=== PATIENT | female | born 1950 | race Caucasian/White ===

== ENCOUNTER 2018-02-23 23:05 | Inpatient (IN) | payer OTHER, MEDICARE ==
[~2018-02-23] VITALS: Ht 172.7 cm; Wt 96.2 kg
[~2018-02-23 23:05] MED LIST: AMARYL2 MG PO; ASPIR 8181 MG PO; ASPIRIN325 PO; CLONIDINE0.1 PO; CRESTOR5 MG PO; FISH OIL 1,0001 EAC5 PO; GLUCOPHAGE1000 MG PO; GLUCOVANCE 5-51 EACH PO; LISINOPRIL-HCT1 EACH PO; LISINOPRIL20 MG PO; LOPRESSOR; METFORMIN HCL500 MG PO; MULTIPLE VITAM1 EAC3 PO; PLAVIX 75 MG TA75 MG PO; TOPROL XL25 MG PO; TOUJEO SOL300 UNIT/1 SQ; VICTOZA0.6 MG/0.1 SQ; WELCHOL 625 MG625 MG PO
[2018-02-23 23:08] VITALS: BP 177/89
[2018-02-23] MEDS ORDERED: JANUMET XR 50-1 EAC1 PO (23:12)
[2018-02-23] MEDS ORDERED: ZOCOR20 MG PO (23:12)
[2018-02-23 23:41] LABS: ABSOLUTE EOSINOPHILS 0.1 thou/uL (0.0-0.7); ABSOLUTE LYMPHOCYTES 2.2 thou/uL (0.8-5.3); ABSOLUTE MONOCYTES 0.4 thou/uL (0.0-1.2); BASOPHILS 0.8 %; EOSINOPHILS 2.1 %; HEMATOCRIT 41.1 % (37.0-47.0); HEMOGLOBIN 14.1 gm/dL (12.0-15.0); LYMPHOCYTES 38.4 %; MCH 28.4 pg (26.0-34.0); MCHC 34.4 g/dL (28.0-37.0); MCV 82.7 fL (80.0-100.0); MONOCYTES 6.4 %; MPV 7.5 fl. (7.2-11.1); NUCLEATED RBCS 0 /100WBC; PLATELET COUNT* 211 thou/uL (150-400); POLYS 52.3 %; RBC 4.97 mil/uL (4.20-5.00); RDW-CV 13.3 % (10.5-14.5); WBC 5.8 thou/uL (4.0-11.0)
[2018-02-23 23:48] LABS: ANION GAP 8 mmol/L (7-16); BUN 39 mg/dL (7-18); CALCIUM 8.9 mg/dL (8.5-10.1); CHLORIDE 104 mmol/L (98-107); CO2 27 mmol/L (21-32); CREATININE 1.4 mg/dL (0.6-1.3); GLUCOSE 198 mg/dL (70-99); POTASSIUM 3.7 mmol/L (3.5-5.1); SODIUM 139 mmol/L (136-145)
[2018-02-23 23:53] LABS: APTT 24.7 Seconds (25.0-31.3); PROTIME 10.1 Seconds (9.20-11.50)
[2018-02-23 23:55] LABS: ALBUMIN 3.5 g/dL (3.4-5.0); ALKALINE PHOSPHATASE 100 U/L (46-116); LIPASE 419 U/L (73-393); SGOT 20 U/L (15-37); SGPT 29 U/L (30-65); TOTAL BILIRUBIN 0.3 mg/dL (<0.1-1.0); TOTAL PROTEIN 6.8 g/dL (6.4-8.2); TROPONIN-I LEVEL <0.06 ng/mL (<0.06)
[2018-02-24] VITALS (13 sets, daily range): BP systolic 100–138; BP diastolic 60–89
[2018-02-24] MEDS ORDERED: PROBIOTIC1 EAC2 PO (02:43)
[2018-02-24] MEDS ORDERED: FENOFIBRATE40 MG PO (02:43)
[2018-02-24] MEDS ORDERED: MELATONIN3 MG PO (02:44)
[2018-02-24] MEDS ORDERED: SENOKOT-S1 TA2 PO (02:44)
[2018-02-24] MEDS ORDERED: VITAMIN D400 UNIT PO (02:45)
[2018-02-24] MEDS ORDERED: VITAMIN B122500 MCG PO (02:46)
[2018-02-24 10:37] LABS: ANION GAP 7 mmol/L (7-16); BUN 35 mg/dL (7-18); CALCIUM 8.5 mg/dL (8.5-10.1); CHLORIDE 107 mmol/L (98-107); CHOLESTEROL 119 mg/dL (<200); CO2 28 mmol/L (21-32); CREATININE 1.3 mg/dL (0.6-1.3); GLUCOSE 151 mg/dL (70-99); HDL CHOLESTEROL 40 mg/dL (>40); LDL CHOLESTEROL 59 mg/dL (<100); SODIUM 142 mmol/L (136-145); TRIGLYCERIDE 102 mg/dL (<150); VLDL 20 mg/dL (<40)
[2018-02-24 10:41] LABS: SERUM ASSESSMENT Clear
--- NOTE | 2018-02-24 14:03 | EKG ---
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
--- NOTE | 2018-02-24 14:05 | EKG ---
[place] [address] ELECTROCARDIOGRAM REPORT Name: RAQUEL CASTELLANOS Room: [address] ADM IN [facility]#: [id number] Admission: 02/24/18 Attend Phys: Toby Dotson MD Discharge: Date of : 48 Report #: [id number] THIS REPORT FOR: //name// [facility] Test Date: 2018-02-24 Test Time: 08:33:24 Pat Name: RAQUEL CASTELLANOS Department: Room: [place] [address] Gender: F Physician Neonatology: : 1950 Requested By: Diana Choi Order Number: [id number] Reading MD: Yasmany Ramires Measurements Intervals [place] Rate: 64 P: 14 PA: 197 QRS: -13 QRSD: 98 T: -26 QT: 410 QTc: 423 Interpretive Statements Sinus rhythm Abnrm T, consider ischemia, anterolateral lds Compared to ECG 02/10/2017 23:08:45 Possible ischemia now present Electronically Signed On 02-24-2018 14:04:47 CDT by Yasmany Ramires [email or web address] <ELECTRONICALLY SIGNED> By: Yasmany Ramires MD, [facility] 02/24/18 1404 0833 0833 Yasmany Ramires MD, [facility] /EPI
--- NOTE | 2018-02-24 15:16 | CON ---
[address] [address] CONSULTATION Name: RAQUEL CASTELLANOS Room: [address] IN [facility]#: [id number] Admission: 02/24/18 Attend Phys: Toby Dotson MD Discharge: Date of : 48 Report #: [id number] THIS REPORT FOR: //name// CC: Toby Flanagan DO INDICATION: Chest pain. HISTORY OF PRESENT ILLNESS: The patient is a very pleasant 67-year-old white female with history of coronary artery disease with percutaneous coronary intervention on several occasions in 2005. She presents to the hospital with complaints of upper abdominal and chest discomfort and bilateral arm pain. This occurred last night. She states the pain was worse with activity and resolved or improved with rest. Initial EKG in the emergency room shows sinus rhythm with inverted T waves in the anterior leads. Her cardiac enzymes have been unremarkable. At the time of my interview, she was pain free. She does also have a mildly elevated lipase suggesting some possible low grade pancreatitis. She had a cholecystectomy many years ago. CARDIAC RISK FACTORS: Include hypertension, dyslipidemia, and type 2 diabetes mellitus. PAST MEDICAL HISTORY: 1. Coronary artery disease. 2. Insulin-requiring diabetes. 3. Hyperlipidemia. 4. Hypertension. PAST SURGICAL HISTORY: Cholecystectomy in 2010 and bone spur removal. FAMILY HISTORY: The patient's mother has with cardiac disease. The patient's father suddenly. SOCIAL HISTORY: The patient is . 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 She does not smoke. She does not drink alcohol. ALLERGIES AND INTOLERANCES: AVELOX, which cause stomach pain. HOME MEDICATIONS: Vitamin D 400 units daily, B12 250 mcg daily, fenofibrate 40 mg at bedtime, glimepiride 2 mg twice daily, insulin long-acting 42 units at bedtime, probiotics one capsule at bedtime, lisinopril/hydrochlorothiazide 10/12.5 daily, melatonin 3 tablets at bedtime p.r.n., Toprol-XL 25 mg daily, fish oil 2000 mg daily, Senokot-S 1 tablet at bedtime, simvastatin 20 mg at bedtime, Janumet 01/1000 one tablet b.i.d. REVIEW OF SYSTEMS: A 14-point review of systems positive [place] [address] CONSULTATION Name: RAQUEL CASTELLANOS Denise Room: [address]#: [id number] Admission: 02/24/18 Attend Phys: Toby Dotson MD Discharge: Date of : 48 Report #: [id number] as outlined above. She has diabetes. She reports allergies and intolerances to AVELOX. She wears glasses, but has no acute visual loss. She has decreased hearing. Otherwise, 14-point review of systems is unremarkable. PHYSICAL EXAMINATION: VITAL SIGNS: Stable. Blood pressure 138/60, pulse 63 and regular. GENERAL: This is a pleasant female, in no distress. Mood and affect appropriate. HEENT: The patient is wearing glasses. Extraocular muscles intact. Mucous membranes are moist. NECK: Shows no jugular venous distention. There are no carotid bruits. CHEST: Reveals clear lung oliva without wheezes or rales. CARDIAC: Reveals a regular rhythm with normal S1 and S2. I do not appreciate gallop or murmur. ABDOMEN: Reveals normal bowel sounds. The abdomen is soft and nontender. EXTREMITIES: Shows no edema. Peripheral pulses 2+ and easily palpable. SKIN: Warm and dry. A 12-lead EKG shows sinus rhythm with inverted T waves in the anterior leads. LABORATORY DATA: Labs are reviewed. Electrolytes within normal limits. BUN 39, creatinine 1.4, serum glucose 198, lipase is 419. Troponins less than 0.06 on 3 separate occasions. Lipid profile is pending. White blood cell count 5.8, hemoglobin 14.1, and platelet count 211,000. IMPRESSION AND RECOMMENDATIONS: 1. Unstable angina. At this point in time, we will proceed with coronary angiography. Further intervention will be pending the results of that study. 2. Coronary artery disease as outlined above. The patient should be on a daily aspirin in addition to her home medications listed above. 3. Hypertension, adequately controlled on current cardiac regimen. 4. Hyperlipidemia. She is on fenofibrate and simvastatin. Fasting lipid profile has been obtained and is pending. 5. Diabetes per primary physician. <ELECTRONICALLY SIGNED> By: Yasmany Ramires MD, [facility] 02/24/18 1516 0929 1028Microsette Ramires MD, FACC /nt
--- NOTE | 2018-02-24 18:04 | CARD ---
[address] [address] CARDIAC CATH REPORT Name: RAQUEL CASTELLANOS Room: [address] IN [facility]#: [id number] Admission: 02/24/18 Attend Phys: Toby Dotson MD Discharge: Date of : 48 Report #: [id number] THIS REPORT FOR: //name// APPROVED REPORT Study performed: 02/24/2018 10:23:16 Patient Details Patient Status: In-Patient Room #: 233 The patient is a 67 year-old female Event Personnel Yasmany Ramires Pantry Goods Worker, Heavenly Cabrera RN Lab Pack Chemist, Unique Chanel RTR Scrub, Sedrick Murillo (R) Monitor, Sedrick Murillo (R) Scrub, Nan Leyva Monitor, Carlos Manuel Bermudez Process Coordinator, Naomi Mays RN Lab Pack Chemist Procedures Performed Art Access - R radial artery , Selective Left Coronary Angiography, Left Heart Catheterization, PTCA with Stenting Indication Non-STEMI , Chest pain Risk Factors Arterial Hypertension, Hypercholesterolemia, Coronary Artery Disease Previous Procedures/Diagnoses Previous PCI Admission/Lab Medications/Medications given during procedure Heparin Unfract. Procedure Narrative The patient was brought electively to the Cardiac Catheterization Laboratory and was prepped and draped in a sterile manner. The right wrist was infiltrated with 2% Lidocaine subcutaneous anesthesia. A Slender Glidesheath sheath was inserted into the right radial artery. Coronary angiography was performed using coronary diagnostic catheters. The right coronary system was accessed and visualized with a DCR: [place] 4.0 5fr catheter. The left coronary system was accessed and visualized with a JL4 5fr catheter. Left ventricular/Aortic Valve gradient assessed via catheter pullback. [place] [address] CARDIAC CATH REPORT Name: RAQUEL CASTELLANOS Room: [address]#: [id number] Admission: 02/24/18 Attend Phys: Toby Dotson MD Discharge: Date of : 48 Report #: [id number] with a 6 Fr Vasc-Band Reg 24cm. There was no hematoma. Patient developed chest pain during PTCA. Patent developed hypotension during PTCA requiring IV fluid and IV dopamine. Intraoperative Conscious Sedation Sedation start time: 11:28 Case end Time: 13:06 Fentanyl 75 mcg Versed 2 mg Fluoro Time: 19.1 minutes Dose: DAP 435721 cGycm2 3348.97 mGy Contrast Type and Amount: Visipaque 500 ml Coronary Angiography The patient's coronary anatomy is co- dominant. Diagnostic Cath Left Main 30% ostial LAD 80% proximal and 70% mid LAD stenosis Diagonal 1 Normal Circumflex Mildly plaqued in the proximal and midportion. Widely patent stent in the midportion. OM1 Normal OM2 Normal OM3 Normal Right Coronary Stents from proximal to distal right coronary artery. Totally occluded after acute marginal. R PDA Filled by left to right collaterals. RPLV Filled by [id number]-gjtjw collaterals. Left Ventriculography Left Ventriculography was not performed. Hemodynamics The aortic pressure is 143/70 mmHg with a mean of mmHg. The left ventricular end diastolic pressure is 11 mmHg. There was no gradient across the aortic valve upon pullback. Pullback from the left ventricle to the aorta revealed no gradient across the aortic valve. PCI Technique Lesion Anticoagulation was achieved with Heparin. Patient was preloaded with Brillinta. Percutaneous coronary intervention was performed on the proximal left anterior descending artery segment. The lesion stenosis prior to intervention was 90%% with AUBRIE 3 flow. A [id number] [place] [address] CARDIAC CATH REPORT Name: RAQUEL CASTELLANOS Denise Room: [address]#: [id number] Admission: 02/24/18 Attend Phys: Toby Dotson MD Discharge: Date of : 48 Report #: [id number] Catheter was used to engage the lm ostium. A [facility] Interventional Guidewire was used to cross the lesion. BALLOON DILATION A Balloon catheter 2.5 x 8 mm was inserted and inflated up to 14atm for 15seconds. Repeat angiography revealed the following post-dilatation results: 50% stenosis. STENT DEPLOYMENT A drug-eluting stent 3.0 X 15 mm was inserted and inflated up to 10atm for 10seconds. Repeat angiography revealed the following post-stent deployment results: 0% stenosis. Plaque shift was noted into ostium of circumflex artery. Final angiography reveals 0 % stenosis with AUBRIE 3 flow. Conclusion 1. 90% ostial stenosis of lad 2. no restenosis noted of stents in the circumflex artery 3. chronic occlusion of the rca stents that distally filled by collaterals 4. successful placement of a drug eluting stent in the ostium of the lad, although there was plaqus shift into ostium of circumflex artery Recommendations Cardiac Rehabilitation Referral Aggressive Medical Therapy Medications Administered Ticagrelor Diagnostic Cath Approved by: Yasmany Ramires MD Date/Time: <ELECTRONICALLY SIGNED> By: Carlos Manuel Bermudez MD, [facility] 02/24/181803 03 180stanislav Bermudez MD, FACC /INF
[2018-02-25] VITALS (11 sets, daily range): BP systolic 105–158; BP diastolic 47–88
[2018-02-25 02:10] LABS: GLYCOHEMOGLOBIN (HGB A1C) 8.2 % (4.8-5.6)
[2018-02-25 04:49] LABS: CALCIUM 9.1 mg/dL (8.5-10.1); CREATININE 1.6 mg/dL (0.6-1.3); POTASSIUM 4.1 mmol/L (3.5-5.1)
[2018-02-25] MEDS ORDERED: BRILINTA90 MG PO (10:47)
--- NOTE | 2018-02-25 12:14 | EKG ---
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: : 1950 Requested By: Carlos Manuel Bermudez Order Number: [id number] Reading MD: Carlos Manuel Bermudez Measurements Intervals [place] Rate: 65 P: 39 IA: 165 QRS: -16 QRSD: 100 T: -38 QT: 413 QTc: 430 Interpretive Statements Sinus rhythm Borderline left axis deviation Abnormal T, consider ischemia, diffuse leads Compared to ECG 02/24/2018 08:33:24 T-wave abnormality now present Possible ischemia still present Electronically Signed On 02-25-2018 12:14:30 CDT by Carlos Manuel Bermudez [email or web address] <ELECTRONICALLY SIGNED> By: Carlos Manuel Bermudez MD, FACC 02/25/18 1214 0803 0803 Carlos Manuel Bermudez MD, [facility] /EPI
--- NOTE | 2018-02-25 15:45 | 2DMMODE ---
[place] [address] 2 D/M-MODE ECHOCARDIOGRAM Name: RAQUEL CASTELLANOS Room: [address] IN [facility]#: [id number] Admission: 02/24/18 Attend Phys: Toby oDtson, Discharge: Date of : 48 Date of Service: 02/25/18 1544 Report #: [id number] THIS REPORT FOR: //name// APPROVED REPORT Study performed: 02/25/2018 13:06:17 EXAM: Comprehensive 2D, Doppler, and color-flow Echocardiogram Patient Location: Bedside BSA: 2.07 HR: 89 bpm BP: 111/51 mmHg Other Information Study Quality: Fair Indications Dyspnea Chest Pain 2D Dimensions LVEF(%): 60.25 (>50%) IVSd: 12.99 (7-11mm) LVOT Diam: 21.61 (18-24mm) LVDd: 47.51 mm PWd: 11.19 (7-11mm) Ascending Ao: 33.66 (22-36mm) LVDs: 32.25 (25-40mm) Aortic Root: 31.35 mm Cochran's LVEF: 60.25 % Volumes Left Atrial Volume (Systole) LA ESV Index: 27.90 mL/m2 Aortic Valve AoV Peak Jake.: 1.73 m/s AO Peak Gr.: 11.98 mmHg LVOT Max P.39 mmHg AO Mean Gr.: 6.59 mmHg LVOT Mean P.15 mmHg LVOT Max V: 1.05 m/s AO V2 VTI: 28.58 cm LVOT Mean V: 0.67 m/s VASYL (VTI): 2.43 cm2 LVOT V1 VTI: 18.92 cm Mitral Valve E/A Ratio: 0.81 MV Decel. Time: 292.14 [place] [address] 2 D/M-MODE ECHOCARDIOGRAM Name: RAQUEL CASTELLANOS Room: [address] IN [facility]#: [id number] Admission: 02/24/18 Attend Phys: Toby Dotson, Discharge: Date of : 48 Date of Service: 02/25/18 1544 Report #: [id number] MV E Max Jake.: 0.73 m/s MV PHT: 84.72 ms MVA (PHT): 2.60 cm2 TDI E/Lateral E': 10.43 E/Medial E': 12.17 Medial E' Jake.: 0.06 m/s Lateral E' Jake.: 0.07 m/s Pulmonary Valve PV Peak Jake.: 1.00 m/s PV Peak Gr.: 4.00 mmHg Tricuspid Valve RAP Estimate: 5.00 mmHg TR Peak Gr.: 5.42 mmHg RVSP: 10.42 mmHg PA Pressure: 10.42 mmHg Left Ventricle The left ventricle is normal size. There is normal LV segmental wall motion. Mild concentric left ventricular hypertrophy. Left ventricular systolic function is normal. The left ventricular ejection fraction is within the normal range. LVEF is 60-65%. Grade I - abnormal relaxation pattern. Right Ventricle The right ventricle is normal size. The right ventricular systolic function is normal. Atria The left atrium size is normal. Lipomatous hypertrophy of the interatrial septum is noted. The right atrium size is normal. Aortic Valve The Aortic valve is sclerotic. No aortic regurgitation is present. There is no aortic valvular stenosis. Mitral Valve The mitral valve is normal in structure. Trace mitral regurgitation. No evidence of mitral valve stenosis. Tricuspid Valve The tricuspid valve is normal in structure. Trace tricuspid regurgitation. Pulmonic Valve The pulmonary valve is normal in structure. There [place] [address] 2 D/M-MODE ECHOCARDIOGRAM Name: RAQUEL CASTELLANOS Room: [address]#: [id number] Admission: 02/24/18 Attend Phys: Toby Dotson, Discharge: Date of : 48 Date of Service: 02/25/18 1544 Report #: [id number] valvular regurgitation. Great Vessels The aortic root is normal in size. IVC is not well visualized. Pericardium There is no pericardial effusion. <Conclusion> LVEF is 60-65%. Mild concentric left ventricular hypertrophy. The Aortic valve is sclerotic. <ELECTRONICALLY SIGNED> By: Carlos Manuel Bermudez MD, [facility] 02/25/18 1544 1544 1544 Carlos Manuel Bermudez MD, FACC /INF
[2018-02-26] VITALS: BP 134/83
[2018-02-26 04:00] VITALS: BP 131/77
[2018-02-26 07:35] VITALS: BP 148/95
[2018-02-26 08:38] LABS: CALCIUM 8.6 mg/dL (8.5-10.1); CREATININE 1.4 mg/dL (0.6-1.3); POTASSIUM 4.1 mmol/L (3.5-5.1)
[2018-02-26 12:41] VITALS: BP 140/90
[2018-02-26 12:51] LABS: MAGNESIUM 2.1 mg/dL (1.8-2.4)
[2018-02-26 15:52] VITALS: BP 143/67
[2018-02-26 20:00] VITALS: BP 148/68
[2018-02-27] VITALS: BP 134/58
[2018-02-27 04:00] VITALS: BP 131/70
[2018-02-27 07:42] VITALS: BP 134/66
[2018-02-27 11:54] VITALS: BP 139/67
[2018-02-27 15:45] VITALS: BP 118/66
[2018-02-27 19:45] VITALS: BP 155/67
[2018-02-28] VITALS: BP 134/58
[2018-02-28 04:24] VITALS: BP 137/75
[2018-02-28 04:48] LABS: ABSOLUTE EOSINOPHILS 0.2 thou/uL (0.0-0.7); ABSOLUTE LYMPHOCYTES 2.1 thou/uL (0.8-5.3); ABSOLUTE MONOCYTES 0.5 thou/uL (0.0-1.2); ABSOLUTE NEUTROPHILS 2.6 thou/uL (1.6-8.1); BASOPHILS 0.6 %; EOSINOPHILS 2.8 %; HEMATOCRIT 38.5 % (37.0-47.0); HEMOGLOBIN 13.5 gm/dL (12.0-15.0); LYMPHOCYTES 39.5 %; MCH 28.7 pg (26.0-34.0); MCHC 35.1 g/dL (28.0-37.0); MCV 81.9 fL (80.0-100.0); MONOCYTES 8.5 %; MPV 7.6 fl. (7.2-11.1); NUCLEATED RBCS 0 /100WBC; PLATELET COUNT* 203 thou/uL (150-400); POLYS 48.6 %; RDW-CV 13.6 % (10.5-14.5); WBC 5.4 thou/uL (4.0-11.0)
[2018-02-28 04:56] LABS: APTT 25.5 Seconds (25.0-31.3); INR 1.1; PROTIME 10.3 Seconds (9.20-11.50)
[2018-02-28 05:03] LABS: ALBUMIN 3.1 g/dL (3.4-5.0); CALCIUM 9.2 mg/dL (8.5-10.1); CREATININE 1.3 mg/dL (0.6-1.3); POTASSIUM 3.9 mmol/L (3.5-5.1); TOTAL BILIRUBIN 0.4 mg/dL (<0.1-1.0); TOTAL PROTEIN 6.6 g/dL (6.4-8.2)
[2018-02-28 08:00] VITALS: BP 153/64
[2018-02-28 10:30] VITALS: BP 111/51
[2018-02-28 12:23] VITALS: BP 163/65
[2018-02-28 15:31] VITALS: BP 111/51
[2018-02-28] MEDS ORDERED: NITROGLYCERIN0.4 MG SUBLING (15:47)
== END 2018-02-28 16:15 | disposition home or self-care (01) | DRG 246 ==
LOC: M.ERS 23:05 → M.TBA-ER 02-24 00:38 → M.2W 02-24 00:38 → M.ICU 02-24 13:40 → M.2W 02-25 14:53
PROVIDERS: Internal Medicine; Internal Medicine Cardiovascular Disease; Personal Emergency Response Attendant; ADMIT Internal Medicine
PROC: 027034Z Dilation of Coronary Artery, One Artery with Drug-eluting Intraluminal Device, Percutaneous Approach (ICD-10-PCS; principal; 2018-02-24)
PROC: B2111ZZ Fluoroscopy of Multiple Coronary Arteries using Low Osmolar Contrast (ICD-10-PCS; principal; 2018-02-24)
PROC: 4A023N7 Measurement of Cardiac Sampling and Pressure, Left Heart, Percutaneous Approach (ICD-10-PCS; principal; 2018-02-24)
DX: I25.110 Atherosclerotic heart disease of native coronary artery with unstable angina pectoris (principal); J96.01 Acute respiratory failure with hypoxia; I50.33 Acute on chronic diastolic (congestive) heart failure; I95.9 Hypotension, unspecified; E78.00 Pure hypercholesterolemia, unspecified; E11.65 Type 2 diabetes mellitus with hyperglycemia; I11.0 Hypertensive heart disease with heart failure; E78.5 Hyperlipidemia, unspecified; Z88.1 Allergy status to other antibiotic agents; Z90.49 Acquired absence of other specified parts of digestive tract; Z95.5 Presence of coronary angioplasty implant and graft; Z79.2 Long term (current) use of antibiotics; Z79.82 Long term (current) use of aspirin; Z79.4 Long term (current) use of insulin; Z79.899 Other long term (current) drug therapy; Z82.49 Family history of ischemic heart disease and other diseases of the circulatory system

== ENCOUNTER 2018-03-05 08:44 | Observation (INO) | payer OTHER, MEDICARE ==
[~2018-03-05] VITALS: Ht 172.7 cm; Wt 93.9 kg
[~2018-03-05 08:44] MED LIST changes: +BRILINTA90 MG PO; +FENOFIBRATE40 MG PO; +JANUMET XR 50-1 EAC1 PO; +MELATONIN3 MG PO; +NITROGLYCERIN0.4 MG SUBLING; +PROBIOTIC1 EAC2 PO; +SENOKOT-S1 TA2 PO; +VITAMIN B122500 MCG PO; +VITAMIN D400 UNIT PO; +ZOCOR20 MG PO
[2018-03-05 08:47] VITALS: BP 127/79
[2018-03-05 09:14] LABS: ABSOLUTE LYMPHOCYTES 1.4 thou/uL (0.8-5.3); ABSOLUTE MONOCYTES 0.4 thou/uL (0.0-1.2); BASOPHILS 0.5 %; EOSINOPHILS 0.4 %; HEMATOCRIT 40.8 % (37.0-47.0); LYMPHOCYTES 20.8 %; MCH 28.3 pg (26.0-34.0); MCHC 34.2 g/dL (28.0-37.0); MCV 82.8 fL (80.0-100.0); MONOCYTES 5.2 %; MPV 7.8 fl. (7.2-11.1); NUCLEATED RBCS 0 /100WBC; PLATELET COUNT* 216 thou/uL (150-400); POLYS 73.1 %; RBC 4.92 mil/uL (4.20-5.00); RDW-CV 13.3 % (10.5-14.5); WBC 6.8 thou/uL (4.0-11.0)
[2018-03-05 09:23] LABS: ANION GAP 9 mmol/L (7-16); BUN 37 mg/dL (7-18); CALCIUM 9.7 mg/dL (8.5-10.1); CHLORIDE 104 mmol/L (98-107); CO2 27 mmol/L (21-32); CREATININE 1.4 mg/dL (0.6-1.3); GLUCOSE 148 mg/dL (70-99); SODIUM 140 mmol/L (136-145)
[2018-03-05 09:33] LABS: ALBUMIN 3.6 g/dL (3.4-5.0); ALKALINE PHOSPHATASE 80 U/L (46-116); LIPASE 302 U/L (73-393); MAGNESIUM 1.7 mg/dL (1.8-2.4); NT-PRO BRAIN NAT PEPTIDE 109 pg/mL (<300); SGOT 20 U/L (15-37); SGPT 27 U/L (30-65); TOTAL BILIRUBIN 0.4 mg/dL (<0.1-1.0); TOTAL PROTEIN 7.1 g/dL (6.4-8.2); TROPONIN-I LEVEL <0.06 ng/mL (<0.06)
[2018-03-05 11:16] VITALS: BP 105/56
[2018-03-05 12:00] VITALS: BP 120/62
--- NOTE | 2018-03-05 13:16 | NUR ---
PT ARRIVED TO THE FLOOR AT 1125 VIA CART ACCOMPANIED BY ED NURSE. BEDSIDE REPORT RECIEVED. PT ORIENTED TO UNIT AND SERVICES, FOOD AND DRINK OFFERED. ROOF FIXER APPLIED. PT DENIES ANY C/O PAIN AT THIS TIME. VSS ON 2L VIA NC AND TRACING SR ON THE MONITOR. MEDICATIONS RECONCILED, AND ADMISION ASSESSMENTS COMPLETED. NURSING WILL ADMINISTER MEDICATIONS PER MAR AND MONITOR FOR COMFORT AND SAFTEY.
[2018-03-05 16:16] VITALS: BP 113/61
--- NOTE | 2018-03-05 18:25 | NUR ---
PT REMAINS A&O CALM AND COOPERATIVE. SHE HAS BEEN TRACING SR ON THEMONITOR AND VS REMAIN STABLE. NO C/O PAIN OR DISCOMFORT. HOURLY ROUNDING COMPLETED FOR COMFORT AND SAFTEY.
[2018-03-05 20:00] VITALS: BP 104/53
[2018-03-06 00:32] VITALS: BP 134/65
--- NOTE | 2018-03-06 02:50 | NUR ---
ASSUMED PT CARE AT 1930, PT IS A&OX4, PT IS TRACING NSR WITH A 1DAVB ON THE MONITOR, ON RA SATTING MID TO HIGH 90'S. PT IS UP AD OLIVA IN HER ROOM AND APPEARS STABLE ON HER FEET. PT DENIES ANY PAIN OR NEEDS AT THIS TIME, PT IS NPO FOR PENDING CARDIOLOGY CONSULT THIS AM. BED IN LOW POSITION, CALL LIGHT IN REACH. HOURLY ROUNDING COMPLETED FOR PT SAFETY.
[2018-03-06 03:54] VITALS: BP 119/60
[2018-03-06 08:00] VITALS: BP 126/66
[2018-03-06] MEDS ORDERED: OMEPRAZOLE40 MG PO (08:16)
--- NOTE | 2018-03-06 11:51 | CON ---
[address] [address] CONSULTATION Name: RAQUEL CASTELLANOS Room: [address] IN ..#: [id number] Admission: 03/05/18 Attend Phys: Toby Dotson MD Discharge: Date of : 48 Report #: [id number] THIS REPORT FOR: //name// CC: Toby Flanagan DATE OF SERVICE: 03/05/2018 CHIEF COMPLAINT: Chest pain. HISTORY OF PRESENT ILLNESS: The patient is a 67-year-old female with a history of recent PCI to the ostium of her LAD, presents with a resting episode of chest discomfort. The patient was asleep and at 0500 woke up with a severe back pain radiating upward to her chest and took a nitro and her symptoms continued to persist and she went into the Emergency Room where an ECG demonstrated a sinus rhythm with no dynamic ST-T wave abnormalities. With morphine and more nitroglycerin her symptoms have resolved and by the time I am visiting with the patient, she is asymptomatic, sitting up in bed and not having any angina. She had been feeling well for 4 days post PCI. She denies exertional chest pressure, but had been short of breath. She does have these symptoms after she takes her Brilinta. It usually goes away with a cup of coffee. She denies any palpitations, heart racing, dizziness, syncope, or presyncope. On anticoagulation, she denies GI or bleeding. PAST MEDICAL HISTORY: PCI. She had a cardiac catheterization on 02/24/2018 with placement of a 3.0 x 15 mm drug-eluting stent in the ostium of her LAD for a 90% stenosis. There apparently was plaque shift into the ostium of the circumflex. Her residual LAD stenosis was 0%. She had previously placed stents in the circumflex, which were widely patent and she has chronic occlusion of her right coronary artery, which is filled by collaterals. She has hypertension, hyperlipidemia, diabetes mellitus. HOME MEDICATIONS: Include Brilinta b.i.d., aspirin 81 mg daily, lisinopril/HCTZ 10/12.5 mg a day, Toprol-XL 25 mg daily, Janumet, fenofibrate 40 mg at bedtime, glimepiride 2 mg p.o. b.i.d., omega 3 fatty acids, nitroglycerin p.r.n., simvastatin 20 mg at bedtime. ALLERGIES: SHE HAS ALLERGIES TO MOXIFLOXACIN. FAMILY HISTORY: [place] [address] CONSULTATION Name: RAQUEL CASTELLANOS Room: [address] IN [facility]#: [id number] Admission: 03/05/18 Attend Phys: Toby Dotson MD Discharge: Date of : 48 Report #: [id number] SOCIAL HISTORY: She rarely drinks, does not smoke. REVIEW OF SYSTEMS: GENERAL: No fevers or chills. CARDIOVASCULAR: Positive chest pain. Positive shortness of breath, no orthopnea, no PND. GASTROINTESTINAL: No nausea or vomiting. GENITOURINARY: No dysuria or hematuria. SKIN: No rashes. Positive bruising. NEUROLOGICAL: Denies numbness, weakness, slurred speech or visual changes. PHYSICAL EXAMINATION: VITAL SIGNS: Blood pressure on presentation 127/79, pulse was 68. She had an O2 sat 98% on room air. Weight is 208 pounds. GENERAL: Pleasant, mildly obese, middle-aged female. She is alert, sitting up in bed, resting comfortably. HEENT: Unremarkable. HEENT: Eyes: EOMs intact. No facial asymmetry. NECK: Supple. No jugular venous distention. CARDIOVASCULAR: Regular. I could not hear a murmur. EXTREMITIES: Her right wrist where heart catheterization was performed demonstrates normal pulse and no hematoma. LABORATORY DATA: Electrocardiogram demonstrates sinus rhythm, borderline left axis, heart rate 68. Her troponin I initially is 0.06.: Hemoglobin is 14.0, white blood cell count 6.8, platelet count is 216,000. INR is 0.23. D-dimer is 0.23. IMPRESSION: 1. Unstable angina. 2. Coronary artery disease, status post recent percutaneous coronary intervention to her left anterior descending. 3. Chronically occluded right coronary artery. 4. Diabetes. 5. Hypertension. 6. Hyperlipidemia. PLAN: We will continue medical therapy including nitrates, morphine, beta blockers, aspirin and Brilinta, and we will continue to cycle cardiac markers and likely given the plaque shift involving ostium of her left circumflex, she will likely need either another diagnostic [place] [address] CONSULTATION Name: RAQUEL CASTELLANOS Room: [address] IN [facility]#: [id number] Admission: 03/05/18 Attend Phys: Toby Dotson MD Discharge: Date of : 48 Report #: [id number] noninvasive stress imaging. We will base this on her clinical symptoms and her cardiac troponin levels. <ELECTRONICALLY SIGNED> By: Primitivo Abraham MD, FACC 03/06/18 1151 1229 1548Primitivo Abraham MD, FACC /nt
--- NOTE | 2018-03-06 11:52 | EKG ---
[place] [address] ELECTROCARDIOGRAM REPORT Name: RAQUEL CASTELLANOS Room: [place] [address] 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[place] : 1950 Requested By: Syed John Order Number: [id number] MD: Primitivo Abraham Measurements Intervals [place] Rate: 68 P: 33 MI: 179 QRS: -18 QRSD: 103 T: 57 QT: 399 QTc: 425 Interpretive Statements Sinus rhythm Borderline left axis deviation Compared to ECG 02/25/2018 08:03:28 T-wave abnormality no longer present Possible ischemia no longer present Electronically Signed On 03-06-2018 11:51:51 CDT by Primitivo Abraham [email or web address] <ELECTRONICALLY SIGNED> By: Primitivo Abraham MD, FACC 03/06/18 1151 0848 0848 Primitivo Abraham MD, [facility] /EPI
[2018-03-06 12:07] VITALS: BP 128/69
[2018-03-06 12:27] VITALS: BP 128/69
--- NOTE | 2018-03-06 13:29 | NUR ---
ASSUMED CARE OF PT AT 0730. PT REMAINED A&O X4 CALM AND COOPERATIVE. PT HAS HAD NO C/O PAIN OR DISTRESS AND VSS ON ROOM AIR. TRACING SR WITH RATES IN 'S. PT DISCHARGED HOME WITH ALLL PRESONAL BELONGINGS AND PRESCRIPTIONS. PT AND SIGNIFICANT OTHER VERBALIZED UNDERSTANDING OF DISCHARGE INSRTUCTIONS THAT INCLUDED MEDICATION TEACHING AND FOLLOW UP CARE.
== END 2018-03-06 13:30 | disposition home or self-care (01) ==
LOC: M.ERS 08:44 → M.TBA-ER 10:44 → M.2W 10:44
PROVIDERS: Emergency Medicine Emergency Medical Services; ADMIT Internal Medicine
DX: I25.110 Atherosclerotic heart disease of native coronary artery with unstable angina pectoris (principal); I12.9 Hypertensive chronic kidney disease with stage 1 through stage 4 chronic kidney disease, or unspecified chronic kidney disease; E11.22 Type 2 diabetes mellitus with diabetic chronic kidney disease; N18.3 Chronic kidney disease, stage 3 (moderate); E78.5 Hyperlipidemia, unspecified; M51.34 Other intervertebral disc degeneration, thoracic region; M50.30 Other cervical disc degeneration, unspecified cervical region; K21.9 Gastro-esophageal reflux disease without esophagitis; Z90.89 Acquired absence of other organs; Z79.4 Long term (current) use of insulin; Z95.5 Presence of coronary angioplasty implant and graft; Z72.89 Other problems related to lifestyle; Z98.890 Other specified postprocedural states

== ENCOUNTER → 2018-03-09 | Outpatient (CLI) | payer OTHER, MEDICARE ==
[~2018-03-09] MED LIST changes: +OMEPRAZOLE40 MG PO
== END ==
LOC: M.ULTRA 03-07 13:01
DX: Z01.818 Encounter for other preprocedural examination (principal); I65.23 Occlusion and stenosis of bilateral carotid arteries; Z95.5 Presence of coronary angioplasty implant and graft

== ENCOUNTER 2019-04-22 23:11 | Emergency (ER) | payer MEDICARE, OTHER ==
[~2019-04-22] VITALS: Ht 172.7 cm; Wt 97.5 kg
[2019-04-22 23:51] LABS: HEMATOCRIT 42.3 % (37.0-47.0); HEMOGLOBIN 14.4 gm/dL (12.0-15.0); MCH 28.3 pg (26.0-34.0); MCV 83.3 fL (80.0-100.0); MPV 7.7 fl. (7.2-11.1); RBC 5.08 mil/uL (4.20-5.00); RDW-CV 13.1 % (10.5-14.5); WBC 5.3 thou/uL (4.0-11.0)
[2019-04-23 00:04] LABS: CALCIUM 9.4 mg/dL (8.5-10.1); CREATININE 1.4 mg/dL (0.6-1.3); POTASSIUM 3.2 mmol/L (3.5-5.1)
[2019-04-23 03:41] VITALS: BP 147/84
== END 2019-04-23 03:41 | disposition home or self-care (01) ==
LOC: M.ERS 23:11
PROVIDERS: Emergency Medicine Emergency Medical Services
DX: T38.3X1A Poisoning by insulin and oral hypoglycemic [antidiabetic] drugs, accidental (unintentional), initial encounter (principal); I10 Essential (primary) hypertension; E11.9 Type 2 diabetes mellitus without complications; E78.5 Hyperlipidemia, unspecified; Z95.2 Presence of prosthetic heart valve; Z98.890 Other specified postprocedural states; Z79.4 Long term (current) use of insulin; Z88.6 Allergy status to analgesic agent; Y92.89 Other specified places as the place of occurrence of the external cause

== ENCOUNTER → 2019-09-20 | Outpatient (CLI) | payer MEDICARE, OTHER | LOC: M.LAB 04:55 | PROVIDERS: Anesthesiology | DX: E87.6 Hypokalemia (principal); E11.9 Type 2 diabetes mellitus without complications ==

== ENCOUNTER 2020-03-23 05:31 | Emergency (ER) | payer MEDICARE, OTHER ==
[~2020-03-23] VITALS: Ht 172.7 cm; Wt 93.0 kg
[2020-03-23] MEDS ORDERED: LOVASTATIN 20 M20 MG PO (05:56)
[2020-03-23] MEDS ORDERED: HUMALOG100 UNIT/1 SUBQ (05:56)
[2020-03-23 06:01] LABS: ABSOLUTE EOSINOPHILS 0.1 thou/uL (0.0-0.7); ABSOLUTE LYMPHOCYTES 1.8 thou/uL (0.8-5.3); ABSOLUTE MONOCYTES 0.3 thou/uL (0.0-1.2); ABSOLUTE NEUTROPHILS 3.4 thou/uL (1.6-8.1); BASOPHILS 0.4 %; EOSINOPHILS 1.6 %; HEMATOCRIT 41.9 % (37.0-47.0); HEMOGLOBIN 15.2 gm/dL (12.0-15.0); LYMPHOCYTES 31.3 %; MCHC 36.2 g/dL (28.0-37.0); MCV 82.8 fL (80.0-100.0); MONOCYTES 5.9 %; MPV 7.7 fl. (7.2-11.1); NUCLEATED RBCS 0 /100WBC; PLATELET COUNT* 202 thou/uL (150-400); POLYS 60.8 %; RBC 5.06 mil/uL (4.20-5.00); RDW-CV 13.3 % (10.5-14.5); WBC 5.6 thou/uL (4.0-11.0)
[2020-03-23 06:15] LABS: URINE BILIRUBIN NEGATIVE (Negative); URINE BLOOD NEGATIVE (Negative); URINE CLARITY CLEAR; URINE COLOR YELLOW; URINE GLUCOSE-RANDOM TRACE (Negative); URINE KETONES NEGATIVE (Negative); URINE LEUKOCYTES-REFLEX NEGATIVE (Negative); URINE NITRITE-REFLEX NEGATIVE (Negative); URINE PROTEIN TRACE (Negative); URINE SPECIFIC GRAVITY 1.025 (1.005-1.030); URINE UROBILINOGEN 0.2 E.U./dl (0.2-1.0)
[2020-03-23 06:19] LABS: PROTIME 10.3 Seconds (9.20-11.50)
[2020-03-23 06:29] LABS: CALCIUM 8.8 mg/dL (8.5-10.1); CREATININE 1.3 mg/dL (0.6-1.3); POTASSIUM 3.7 mmol/L (3.5-5.1)
[2020-03-23 06:39] LABS: ALBUMIN 3.8 g/dL (3.4-5.0); MAGNESIUM 1.7 mg/dL (1.8-2.4); TOTAL BILIRUBIN 0.6 mg/dL (<0.1-1.0); TOTAL PROTEIN 7.3 g/dL (6.4-8.2)
[2020-03-23 08:54] VITALS: BP 122/61
--- NOTE | 2020-03-24 12:34 | EKG ---
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 : 1950 Requested By: Letty Bae Order Number: [id number] MD: Yasmany Ramires Measurements Intervals [place] Rate: 89 P: 61 IL: 167 QRS: -27 QRSD: 97 T: 35 QT: 375 QTc: 457 Interpretive Statements Sinus rhythm Borderline left axis deviation Baseline wander in lead(s) II,III,aVR,aVL,aVF,V1,V4,V5 Compared to ECG 03/05/2018 08:48:50 No significant changes Electronically Signed On 03-24-2020 12:34:35 CDT by Yasmany Ramires [email or web address] <ELECTRONICALLY SIGNED> By: Yasmany Ramires MD, FACC 03/24/20 1234 0537 0537 Yasmany Ramires MD, FACC /EPI
== END 2020-03-23 08:57 | disposition home or self-care (01) ==
LOC: M.ERS 05:31
PROVIDERS: Emergency Medicine
DX: R07.89 Other chest pain (principal); E11.9 Type 2 diabetes mellitus without complications; E78.5 Hyperlipidemia, unspecified; I10 Essential (primary) hypertension; Z95.5 Presence of coronary angioplasty implant and graft; Z88.1 Allergy status to other antibiotic agents; Z79.4 Long term (current) use of insulin

== ENCOUNTER → 2020-04-12 | Outpatient (CLI) | payer MEDICARE, OTHER ==
[~2020-04-12] MED LIST changes: +HUMALOG100 UNIT/1 SUBQ; +LOVASTATIN 20 M20 MG PO
== END ==
LOC: M.ULTRA 10:00
PROVIDERS: ATTEND Internal Medicine Cardiovascular Disease
DX: I65.23 Occlusion and stenosis of bilateral carotid arteries (principal); Z98.890 Other specified postprocedural states